=== PATIENT | female | born 1965 | race Caucasian/White ===

== ENCOUNTER 2020-12-12 10:42 | Outpatient (CLI) | payer BC | END 2020-12-12 10:43 | disposition home or self-care (01) | LOC: CSHULT 10:42 | PROVIDERS: ATTEND Family Medicine | DX: R10.11 Right upper quadrant pain (principal); Z90.49 Acquired absence of other specified parts of digestive tract; K76.0 Fatty (change of) liver, not elsewhere classified | CPT/HCPCS: 93975 ==

== ENCOUNTER 2021-09-04 15:27 | Outpatient (CLI) | payer BC | END 2021-09-04 15:28 | disposition home or self-care (01) | LOC: CSHCT 15:27 | PROVIDERS: ATTEND Internal Medicine Cardiovascular Disease | DX: R07.9 Chest pain, unspecified (principal); R91.8 Other nonspecific abnormal finding of lung field; R59.1 Generalized enlarged lymph nodes | CPT/HCPCS: 71260 ==

== ENCOUNTER 2023-06-05 07:31 | Observation (INO) | payer BC ==
[2023-06-05] MEDS ORDERED: Acetaminophen 325 MG TAB PO PRN (08:19)
[2023-06-05] MEDS ORDERED: Ondansetron PF 4 MG/2 ML Vial IVP PRN (08:19)
[2023-06-05 09:11] VITALS: BMI 24.5
[2023-06-05] MEDS ORDERED: HYDROcodone/Acetaminophen 10/325 mg Tablet PO PRN (10:59)
[2023-06-05] MEDS ORDERED: Ondansetron ODT 4 MG TAB PO PRN (11:54)
[2023-06-05] MEDS ORDERED: Methocarbamol 500 MG TAB PO PRN (12:06)
[2023-06-05] MEDS ORDERED: Amlodipine 5 MG TAB PO SCH (12:15)
[2023-06-05] MEDS ORDERED: Naloxone HCl 0.4 mg/ml Vial IV PRN (13:56)
[2023-06-05] MEDS ORDERED: HYDROcodone/Acetaminophen 10/325 mg Tablet PO SCH (14:00)
[2023-06-05] MEDS: Furosemide 20 MG/2 ML VIAL SLOW IVP SCH (14:29)
[2023-06-05 15:29] LABS: Troponin I Less than 0.010 ng/mL (< 0.028)
[2023-06-05] MEDS: HYDROcodone/Acetaminophen 10/325 mg Tablet PO PRN ×2 (16:26→20:37)
[2023-06-05] MEDS: Methocarbamol 500 MG TAB PO PRN ×2 (16:27→20:39)
[2023-06-05] MEDS: Dexamethasone 0.1% OPTH SOLN EA EYE SCH (20:39)
[2023-06-05] MEDS ORDERED: Pregabalin 75 MG CAP PO SCH ×2 (21:00)
[2023-06-05] MEDS ORDERED: Atorvastatin Calcium 20 MG TAB PO SCH (21:00)
[2023-06-06] MEDS: HYDROcodone/Acetaminophen 10/325 mg Tablet PO PRN ×2 (03:41→10:26)
[2023-06-06] MEDS: Methocarbamol 500 MG TAB PO PRN ×2 (03:45→12:37)
[2023-06-06 06:17] LABS: Anion Gap 14 mmol/L (10-20); BUN (Urea Nitrogen) 7 mg/dL (9.8-20.1); Calc. Creatinine Clearance 83 mL/min (70-130); Calcium 8.4 mg/dL (7.8-10.44); Carbon Dioxide 28 mmol/L (22-29); Chloride 94 mmol/L (98-107); Estimated GFR 100; Glucose 86 mg/dL (70-105); Potassium 3.8 mmol/L (3.5-5.1); Sodium 132 mmol/L (136-145)
[2023-06-06 06:18] LABS: Band 1 % (5-11); Eosinophils 3 % (0-10); Lymphocytes 55 % (21-51); Monocytes 4 % (0-10); Neutrophil 34 % (42-75); Reactive Lymphocytes 3 % (0-10)
[2023-06-06 06:19] LABS: Hypochromia SLIGHT = 6-15 cells (100X) (0-5/hpf); Platelet Adequacy Comment Appears Adequate
[2023-06-06 06:22] LABS: Differential Comment Plasma-cytoid Cells
[2023-06-06 06:23] LABS: Reflex for Review?? YES
[2023-06-06 06:25] LABS: Hematocrit 28.9 % (34.9-44.5); Hemoglobin 9.2 g/dL (12.0-15.5); Mean Corpuscular HGB CONC 31.8 g/dL (32.0-36.0); Mean Corpuscular Hemoglobin 27.5 pg (27.0-33.0); Mean Corpuscular Volume 86.3 fl (81.6-98.3); Mean Platelet Volume 9.3 fl (7.4-10.4); Platelet Count 308 10x3/uL (150-450); RBC Distribution Width 15.3 % (11.5-14.5); Red Blood Cell (RBC) Count 3.35 10x6/uL (3.90-5.03)
[2023-06-06 06:27] LABS: Anisocytosis SLIGHT = 6-15 cells (100X) (0-5/hpf); Macrocytosis SLIGHT = 6-15 cells (100X) (0-5/hpf)
[2023-06-06] MEDS: Furosemide 20 MG/2 ML VIAL SLOW IVP SCH (06:40)
[2023-06-06] MEDS ORDERED: Amlodipine 5 MG TAB PO SCH (09:00)
[2023-06-06] MEDS ORDERED: Pregabalin 75 MG CAP PO SCH (09:00)
[2023-06-06] MEDS: Dexamethasone 0.1% OPTH SOLN EA EYE SCH (10:35)
[2023-06-06 12:51] VITALS: BP 133/71; TEMP 98.4
[2023-06-06 22:16] LABS: MDiff Complete? YES
[2023-06-07] MEDS ORDERED: Furosemide 20 MG/2 ML VIAL SLOW IVP SCH (09:00)
== END 2023-06-06 14:49 | disposition home or self-care (01) ==
LOC: CSHTELE 07:31 → INTOOBSV 07:31
PROVIDERS: ADMIT Family Medicine; ATTEND Family Medicine
DX: R07.89 Other chest pain (principal); I10 Essential (primary) hypertension; E78.5 Hyperlipidemia, unspecified; F17.200 Nicotine dependence, unspecified, uncomplicated; Z86.711 Personal history of pulmonary embolism; Z79.01 Long term (current) use of anticoagulants; Z90.49 Acquired absence of other specified parts of digestive tract; Z96.659 Presence of unspecified artificial knee joint; Z79.899 Other long term (current) drug therapy
CPT/HCPCS: 36415; 71045; 80048; 83880; 85025; 85060; 93306; 96372; 96374; 96376; G0378; J1650; J1940

== ENCOUNTER 2023-06-20 14:58 | Outpatient (CLI) | payer BC | END 2023-06-20 14:59 | disposition home or self-care (01) | LOC: CSHMRI 14:58 | PROVIDERS: ATTEND Physician Assistant | DX: M50.20 Other cervical disc displacement, unspecified cervical region (principal); Z98.1 Arthrodesis status; Z98.890 Other specified postprocedural states | CPT/HCPCS: 72141 ==

== ENCOUNTER 2023-07-13 12:42 | Outpatient (CLI) | payer BC | END 2023-07-13 12:43 | disposition home or self-care (01) | LOC: CSHCP 12:42 | PROVIDERS: ATTEND Internal Medicine | DX: R91.1 Solitary pulmonary nodule (principal); R94.2 Abnormal results of pulmonary function studies | CPT/HCPCS: 94060; 94726; 94729; 94760 ==

== ENCOUNTER 2023-07-28 14:03 | Outpatient (CLI) | payer BC | END 2023-07-28 14:04 | disposition home or self-care (01) | LOC: CSHMRI 14:03 | PROVIDERS: ATTEND Family Medicine | DX: M47.26 Other spondylosis with radiculopathy, lumbar region (principal) | CPT/HCPCS: 72148 ==